=== PATIENT | female | born 1945 | race Caucasian/White ===

== ENCOUNTER → 2018-04-03 | Outpatient (REF) | payer MEDICARE, OTHER | LOC: ZZSTITCHES 16:43 | PROVIDERS: ATTEND Physician Assistant | DX: E13.42 Other specified diabetes mellitus with diabetic polyneuropathy (principal); I10 Essential (primary) hypertension; J45.998 Other asthma; R06.02 Shortness of breath; R60.9 Edema, unspecified | CPT/HCPCS: 82040; 82247; 82310; 82374; 82435; 82565; 82947; 83880; 84075; 84132; 84155; 84295; 84450; 84460; 84520 ==